=== PATIENT | male | born 1970 | race Caucasian/White ===

== ENCOUNTER 2019-08-21 09:22 | Day surgery (SDC) | payer BC ==
[2019-08-20 10:16] VITALS: BMI 32.3
[~2019-08-21 09:22] MED LIST: LACTATED RINGERS 1,000 ML IV SCH
[2019-08-21 09:47] VITALS: RESP 16; TEMP 97.3
[2019-08-21] MEDS ORDERED: LIDOCAINE 1% 20 ML VIAL (10MG/ML) FOR IV START INTRADERMA ONE (09:50)
[2019-08-21 09:52] LABS: Glucose,Whole Blood 102 mg/dL (75-99)
[2019-08-21] MEDS ORDERED: PROPOFOL 10 MG/ML 20 ML VIAL IV ONE (10:00)
[2019-08-21] MEDS ORDERED: LIDOCAINE 1% INJ 10MG/ML (20 ML MDV) ONE (10:00)
[2019-08-21] MEDS ORDERED: IV FLUID CONTINUATION 1,000 ML IV ONE (10:18)
--- NOTE | 2019-08-21 10:24 | P.PCN ---
Date of Procedure: 08/21/19 Procedure(s) Performed: BRIEF HISTORY: Patient is a 48-year-old pleasant male scheduled for an elective colonoscopy as a part of screening for colorectal neoplasia. He has family history of colon cancer in his dad diagnosed in his early 50s. PROCEDURE PERFORMED: Colonoscopy. PREOPERATIVE DIAGNOSIS: Screening for colon cancer/family history of colon cancer. IV sedation per Anesthesia. PROCEDURE: After informed consent was obtained, the patient, was brought into the endoscopy unit. IV sedation was administered by Anesthesia under continuous monitoring. Digital rectal examination was normal. Initially the Olympus CF-160 flexible video colonoscope was then inserted in the rectum, gradually advanced into the cecum without any difficulty. Careful examination was performed as the scope was gradually being withdrawn. Ileocecal valve and the appendiceal orifice were visualized and appeared normal. Prep was excellent. Mucosa of the cecum, ascending colon, transverse colon, descending colon, sigmoid colon, and rectum appeared normal. Retroflexion was performed in the rectum and no lesions were seen. The patient tolerated the procedure well. IMPRESSION: Normal-appearing colon from rectum to cecum with no evidence of colorectal neoplasia. RECOMMENDATIONS: Findings of this examination were discussed with the patient as well as his family. He was advised to have a repeat screening colonoscopy every 5 years because of the family history of colon cancer.
[2019-08-21 10:30] VITALS: BP 94/66; PULSE 69
== END 2019-08-21 10:56 | disposition home or self-care (01) ==
LOC: ORWHC2ENDO 09:22
PROVIDERS: ATTEND Internal Medicine Gastroenterology
DX: Z12.11 Encounter for screening for malignant neoplasm of colon (principal); Z80.0 Family history of malignant neoplasm of digestive organs; Z88.0 Allergy status to penicillin; I10 Essential (primary) hypertension; E78.5 Hyperlipidemia, unspecified; F17.210 Nicotine dependence, cigarettes, uncomplicated; E11.9 Type 2 diabetes mellitus without complications; Z79.899 Other long term (current) drug therapy; Z88.6 Allergy status to analgesic agent
CPT/HCPCS: G0105; J2001; J2704

== ENCOUNTER → 2021-04-12 | Outpatient (CLI) | payer OTHER ==
--- NOTE | 2021-04-12 08:56 | US ---
EXAMINATION TYPE: US abdomen complete DATE OF EXAM: 04/12/2021 COMPARISON: NONE CLINICAL HISTORY: R74.0 Nonspecific elevation of levels of transamin. EXAM MEASUREMENTS: Liver Length: 16.8 cm Gallbladder Wall: 0.2 cm CBD: 0.6 cm Spleen: 13.0 cm Right Kidney: 12.8 x 6.9 x 6.8 cm Left Kidney: 13.0 x 5.9 x 5.7 cm Patient of large body habitus with large amount of overlying bowel gas. Limited study. Pancreas: Obscured by bowel gas not visualized. Liver: Unable to well penetrate, limited visualization. Probable diffuse fatty infiltration of liver . Gallbladder: Partially obscured by overlying bowel gas, portions visualized wnl Evidence for sonographic Ortiz's sign: no CBD: limited visualization Spleen: upper limits of normal in size Right Kidney: measures large Left Kidney: measures large Upper IVC: not visualized Abd Aorta: Obscured by overlying bowel gas IMPRESSION: 1. Limited study due to large amount of bowel gas and large body habitus. Limited visualization of th e gallbladder, common duct, liver, and nonvisualized pancreas, IVC and abdominal aorta. Consider CT a bdomen and pelvis evaluation if clinically indicated. 2. Large bilateral kidneys may be due to patient's body size. 3. Probable diffuse fatty infiltration of liver.
== END | disposition home or self-care (01) ==
LOC: RADUSWWP 06:55
PROVIDERS: ATTEND Internal Medicine
DX: R74.01 Elevation of levels of liver transaminase levels (principal)
CPT/HCPCS: 76700

== ENCOUNTER → 2021-10-13 | Outpatient (CLI) | payer OTHER ==
--- NOTE | 2021-10-13 11:40 | CTL ---
EXAMINATION TYPE: CT Low Dose Lung DATE OF EXAM ORDERED: 10/13/2021 HISTORY: Long-term tobacco use. Lung cancer screening CT DLP: 124.[address] CTDI: 4.0 mGy Automated exposure control for dose reduction was used. SCREENING VISIT: Baseline COMPARISON: None TECHNIQUE: Low dose computed tomography scan was performed through the chest at 1 mm thick sections a nd reconstructed images in multiple planes at 1 mm and [address] DIAGNOSTIC QUALITY: Satisfactory FINDINGS: LUNG NODULES: Present, detailed below: Incidental 4 mm subpleural calcified nodule or granuloma left lower lobe axial image 170. Incidental 3 mm calcified left lower lobe nodule or granuloma medially axial image 148 . There is subpleural 3 mm noncalcified nodule right middle lobe axial image 167. No greater than 5 mm noncalcified pulmonary nodules. LUNGS: COPD: Severity: Mild Fibrosis: Severity: None Lymph nodes: None Other findings: Ascending aorta measures up to 3.8 cm in diameter axial image 24. 4 vessel origin fro m aortic arch which is normal variant. RIGHT PLEURAL SPACE: Effusion: None Calcification: None Thickening: None Pneumothorax: None LEFT PLEURAL SPACE: Effusion: None Calcification: None Thickening: None Pneumothorax: None HEART: Heart Size: Normal Coronary calcification: None Pericardial effusion: Tiny OTHER FINDINGS: Upper abdomen: Visualized liver is low dense consistent with diffuse fatty infiltration. Bony thorax: Mild multilevel spurring Supraclavicular region: Normal Other: Small degree of flame-shaped subareolar gynecomastia noted bilaterally. IMPRESSION: Evidence of old granulomatous disease. Occasional tiny noncalcified nodule. Mild emphysem atous change without greater than 6 mm noncalcified pulmonary nodules. CT LUNG RAD AND CT CHEST RECOMMENDATION: Lung-Rad 2 Benign Appearance or Behavior: Continue annual sc reening with LDCT in 12 months. S Modifier (other clinically significant findings): None
== END | disposition home or self-care (01) ==
LOC: RADCTMAIN 10:32
PROVIDERS: ATTEND Internal Medicine
DX: Z12.2 Encounter for screening for malignant neoplasm of respiratory organs (principal); J43.9 Emphysema, unspecified; Z87.891 Personal history of nicotine dependence; R91.8 Other nonspecific abnormal finding of lung field
CPT/HCPCS: 71271

== ENCOUNTER → 2023-02-20 | Outpatient (CLI) | payer OTHER ==
--- NOTE | 2023-02-20 08:47 | CTL ---
EXAMINATION TYPE: CT Low Dose Lung DATE OF EXAM: 02/20/2023 8:31 AM CLINICAL INDICATION:Male, 52 years old with history of F17.200 NICOTINE DEPENDENCE, UNSPECIFIED, UN,R 91.8; Personal history of tobacco use , history of tobacco use. COMPARISON: 10/12/2021 TECHNIQUE: Multiple axial non-contrast scans were obtained from approximately the lung apices through the upper abdomen. Coronal and sagittal reformatted images were obtained. Low dose technique was uti lized. CT DLP: 90.4 mGycm, Automated exposure control for dose reduction was used. CT Contrast: Contrast used: None Oral contrast used: None FINDINGS: ======== Lack of intravenous contrast and low dose technique limits the evaluation of the vascular and soft ti ssue structures. LUNGS: No evidence of pulmonary fibrosis. No evidence of focal consolidation, pneumothorax or pleural effusion. Mild emphysema changes. Nodules: RUL: None. RML: Unchanged to 3 mm subpleural nodule in the right middle lobe. RLL: None. JORGE A: None. LLL: Calcified granuloma in the left lower lobe subpleural region. AIRWAY: Patent and unremarkable. HEART: Size within normal limits. MEDIASTINUM: No gross evidence of adenopathy. VASCULATURE: No aortic aneurysm. MUSCULOSKELETAL: No acute osseous abnormalities SOFT TISSUES/LYMPH NODES: Mild gynecomastia changes bilaterally. LOWER NECK: No significant findings. UPPER ABDOMEN: No significant findings. IMPRESSION: 1. No clinically significant pulmonary nodules. 2. Mild centrilobular emphysema. CT LUNG RAD AND CT CHEST RECOMMENDATION: Lung-Rad 2 Benign Appearance or Behavior: Continue annual sc reening with LDCT in 12 months. S Modifier (other clinically significant findings): None Recommend smoking cessation (if current smoker), or continuation of smoking cessation (if prior smoke r). Annual screening for lung cancer with low-dose computed tomography is recommended in adults ages 55 to 77 years who have a 30 pack-year smoking history and currently smoke or have quit within the pa st 15 years. Screening should be discontinued once a person has not smoked for 15 years or develops a health problem that substantially limits life expectancy or the ability or willingness to have curat veronica lung surgery. Lung rads 2021 [email or web address]
== END | disposition home or self-care (01) ==
LOC: RADCTMAIN 08:03
PROVIDERS: ATTEND Family Medicine
DX: Z12.2 Encounter for screening for malignant neoplasm of respiratory organs (principal); J43.2 Centrilobular emphysema; F17.210 Nicotine dependence, cigarettes, uncomplicated; R91.8 Other nonspecific abnormal finding of lung field
CPT/HCPCS: 71271

== ENCOUNTER → 2024-05-14 | Outpatient (CLI) | payer OTHER ==
--- NOTE | 2024-05-14 13:55 | US ---
EXAMINATION TYPE: US Aorta Screening DATE OF EXAM: 05/14/2024 COMPARISON: US abdomen 04/12/2021 CLINICAL INDICATION: Male, 53 years old with history of R79.89 OTHER SPECIFIED ABNORMAL FINDINGS OF B LOOD; Current smoker, hx hypertension, hyperlipidemia, diabetes. TECHNIQUE: Multiple sonographic images of the abdominal aorta are obtained. FINDINGS: EXAM MEASUREMENTS: Abdominal Aorta: Proximal: 2.8 x 2.9 cm. 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 *Proximal s egment of the aorta appears ectatic. IMPRESSION: Limited evaluation of the abdominal aorta secondary to body habitus and bowel gas. Only the proximal segment of the abdominal aorta is visualized and is not aneurysmal.
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
== END | disposition home or self-care (01) ==
LOC: RADUSWWP 08:07
PROVIDERS: ATTEND Internal Medicine
DX: K76.0 Fatty (change of) liver, not elsewhere classified (principal); R79.89 Other specified abnormal findings of blood chemistry; Z13.6 Encounter for screening for cardiovascular disorders; R14.3 Flatulence; I10 Essential (primary) hypertension; E11.9 Type 2 diabetes mellitus without complications; E78.5 Hyperlipidemia, unspecified; V89.2XXA Person injured in unspecified motor-vehicle accident, traffic, initial encounter
CPT/HCPCS: 76705; 76706

== ENCOUNTER 2024-11-16 17:03 | Emergency (ER) | payer OTHER ==
[2024-11-16 17:40] VITALS: TEMP 98.3
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
[2024-11-16 20:22] VITALS: BP 121/75; PULSE 75; RESP 16
== END 2024-11-16 20:21 | disposition home or self-care (01) ==
LOC: EC 17:03
DX: S39.012A Strain of muscle, fascia and tendon of lower back, initial encounter (principal); Z88.0 Allergy status to penicillin; Z88.6 Allergy status to analgesic agent; V89.2XXA Person injured in unspecified motor-vehicle accident, traffic, initial encounter; Y92.411 Interstate highway as the place of occurrence of the external cause
CPT/HCPCS: 70450; 72125; 72131; 99284

== ENCOUNTER → 2025-02-08 | Outpatient (CLI) | payer OTHER ==
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
[2025-02-08 20:58] LABS: ALT 130 U/L (10-49); AST 81 U/L (14-35); Albumin 4.4 g/dL (3.8-4.9); Albumin/Globulin Ratio 1.76 Ratio (1.60-3.17); Alkaline Phosphatase 63 U/L (41-126); BUN/Creat Ratio 15.38 Ratio (12.00-20.00); Blood Urea Nitrogen 12.3 mg/dL (9.0-27.0); Calcium 9.6 mg/dL (8.7-10.3); Carbon Dioxide 24.9 mmol/L (21.6-31.8); Chloride 105 mmol/L (96-109); Globulin 2.5 g/dL (1.6-3.3); Glucose 102 mg/dL (70-110); Potassium 4.8 mmol/L (3.5-5.5); Sodium 141 mmol/L (135-145); Total Bilirubin 0.3 mg/dL (0.3-1.2); Total Protein 6.9 g/dL (6.2-8.2)
== END | disposition home or self-care (01) ==
LOC: LABWHC1 15:44
PROVIDERS: ATTEND Internal Medicine
DX: M25.512 Pain in left shoulder (principal); M25.511 Pain in right shoulder; E11.9 Type 2 diabetes mellitus without complications; R79.89 Other specified abnormal findings of blood chemistry
CPT/HCPCS: 36415; 80053; 83036